=== PATIENT | female | born 1995 | race Caucasian/White ===

== ENCOUNTER 2023-09-15 21:48 | Emergency (ER) | payer OTHER ==
[2023-09-15 21:53] VITALS: BP 106/70; PULSE 66; RESP 20; TEMP 97.6; BMI 23.6
[2023-09-15 23:04] LABS: EOS % 1.4 % (0-4.5); HEMATOCRIT 41.5 % (32.4-45.2); HEMOGLOBIN 13.9 GM/dL (10.7-15.3); LYMPH % 13.2 % (8-40); MCH 30.1 pg (25.7-33.7); MCHC 33.5 g/dl (32.0-36.0); MONO % 6.2 % (3.8-10.2); NEUT % 78.2 % (42.8-82.8); PLATELET COUNT 280 10^3/uL (134-434); RBC 4.62 M/mm3 (3.60-5.2); RDW 13.4 % (11.6-15.6); WHITE BLOOD COUNT 8.3 K/mm3 (4.0-10.0)
[2023-09-15 23:37] LABS: POTASSIUM 4.1 mmol/L (3.5-5.1)
[2023-09-15 23:40] LABS: ALBUMIN 4.3 g/dl (3.4-5.0); BLOOD UREA NITROGEN 14.1 mg/dL (7-18); CALCIUM 8.7 mg/dL (8.5-10.1)
[2023-09-15 23:43] LABS: CREATININE 0.7 mg/dL (0.55-1.3)
[2023-09-15 23:44] LABS: TOT PROT 7.4 g/dl (6.4-8.2)
[2023-09-15 23:45] LABS: BILIRUBIN,TOTAL 0.7 mg/dL (0.2-1)
[2023-09-16 00:22] LABS: HIV INTERPRETATION NEGATIVE (NEGATIVE)
== END 2023-09-15 23:11 | disposition home or self-care (01) ==
LOC: JERFT 21:48
DX: S61.032A Puncture wound without foreign body of left thumb without damage to nail, initial encounter (principal); W46.0XXA Contact with hypodermic needle, initial encounter
CPT/HCPCS: 36415; 80053; 82465; 82977; 84100; 85025; 86704; 86803; 87340; 87389; 87517; 99283-25

== ENCOUNTER 2024-05-12 05:38 | Emergency (ER) | payer BC, OTHER ==
[2024-05-12 05:55] VITALS: TEMP 97.9; BMI 23.1
[2024-05-12] MEDS ORDERED: ACETAMINOPHEN INJECTION 100 ML ONE (06:00)
[2024-05-12] MEDS ORDERED: ONDANSETRON 4 MG/2 ML VIAL ONE (06:00)
[2024-05-12] MEDS: ACETAMINOPHEN 1000 MG/100 ML BAG IVPB ONE (06:23)
[2024-05-12] MEDS: LACTATED RINGERS SOLUTION 1000 ML INFUS.BAG IV ONE (06:23)
[2024-05-12] MEDS: ONDANSETRON 4 MG/2 ML VIAL IVPUSH ONE (06:23)
[2024-05-12 06:32] LABS: BASO % 0.7 % (0-2.0); EOS % 3.9 % (0-4.5); HEMATOCRIT 42.1 % (32.4-45.2); HEMOGLOBIN 14.1 GM/dL (10.7-15.3); LYMPH % 25.2 % (8-40); MCH 29.4 pg (25.7-33.7); MCHC 33.4 g/dl (32.0-36.0); MEAN CELL VOLUME 87.9 fl (80-96); MEAN PLT VOLUME 7.5 fl (7.5-11.1); MONO % 7.4 % (3.8-10.2); NEUT % 62.8 % (42.8-82.8); PLATELET COUNT 317 10^3/uL (134-434); RDW 13.1 % (11.6-15.6); WHITE BLOOD COUNT 8.3 K/mm3 (4.0-10.0)
[2024-05-12] MEDS: morphine CARPU-JECT 2 MG/1 ML DISP.SYRIN IVPUSH ONE (06:34)
[2024-05-12 06:39] LABS: INR 1.01 (0.83-1.09)
[2024-05-12 06:41] LABS: ACTIVATED PTT 33.4 SECONDS (25.2-36.5)
[2024-05-12 06:55] LABS: POTASSIUM 3.8 mmol/L (3.5-5.1)
[2024-05-12 06:57] LABS: CALCIUM 9.4 mg/dL (8.5-10.1)
[2024-05-12 06:58] LABS: ALBUMIN 4.6 g/dl (3.4-5.0); BLOOD UREA NITROGEN 9.8 mg/dL (7-18)
[2024-05-12 07:01] LABS: CREATININE 0.7 mg/dL (0.55-1.3)
[2024-05-12 07:02] LABS: BILIRUBIN,TOTAL 0.6 mg/dL (0.2-1)
[2024-05-12 07:03] LABS: TOT PROT 7.9 g/dl (6.4-8.2)
[2024-05-12 08:22] LABS: URINE APPEARANCE CLEAR; URINE BILIRUBIN NEGATIVE (NEGATIVE); URINE COLOR YELLOW; URINE GLUCOSE (UA) NEGATIVE (NEGATIVE); URINE KETONE NEGATIVE (NEGATIVE); URINE LEUK ESTERASE NEGATIVE (NEGATIVE); URINE NITRITE NEGATIVE (NEGATIVE); URINE PROTEIN NEGATIVE (NEGATIVE); URINE UROBILINOGEN 0.2 mg/dL (0.2-1.0)
[2024-05-12 09:25] VITALS: BP 124/85; PULSE 83; RESP 17
== END 2024-05-12 09:28 | disposition home or self-care (01) ==
LOC: JER 05:38
PROC: 3E033NZ Introduction of Analgesics, Hypnotics, Sedatives into Peripheral Vein, Percutaneous Approach (ICD-10-PCS; principal; 2024-05-12)
PROC: 3E033GC Introduction of Other Therapeutic Substance into Peripheral Vein, Percutaneous Approach (ICD-10-PCS; 2024-05-12)
DX: R10.31 Right lower quadrant pain (principal); R11.0 Nausea
CPT/HCPCS: 36415; 74177-TC; 76830-TC; 80053; 81003; 83605; 84703; 85025; 85610; 85730; 86850; 86900; 86901; 87086; 99285-25; J0131; Q9967